=== PATIENT | female | born 1955 | race Caucasian/White ===

== ENCOUNTER 2017-04-15 13:33 | Emergency (ER) | payer SELFPAY ==
[~2017-04-15] VITALS: Ht 167.6 cm; Wt 45.5 kg
[~2017-04-15 13:33] MED LIST: ASPI325T; Z.0.NO CURRENT MEDS
[2017-04-15 13:35] VITALS: BP 124/64; PULSE 118; RESP 16; TEMP 99; O2SAT 98
--- NOTE | 2017-04-15 13:43 | PD ---
Physical Exam Date Seen by Provider: Apr 15, 2017 Time Seen by Provider: 13:42 Narrative 62 yo female here for evaluation of ear pain and urinary symptoms. Going on for about 8 days. Feeling congestion. Weak. Not seen anybody for this. Feels "not right". Thinks there might be yeast. Urinating a lot. Dysuria. Pain with ROM of the head on the right ear. Vitals stable at triage. Awaiting bed placement. Data Data Last Documented VS Vital Signs Date Time Temp Pulse Resp B/P (MAP) Pulse Ox O2 Delivery O2 Flow Rate FiO2 04/15/17 13:35 99.0 118 16 124/64 (84) 98 MDM Medical Record Reviewed: Yes Supervised Visit with REAL: No Yanick Bhatia Apr 15, 2017 13:43
== END 2017-04-15 15:19 | disposition left against medical advice (07) ==
LOC: NED 13:33
DX: H92.09 Otalgia, unspecified ear (principal); Z53.21 Procedure and treatment not carried out due to patient leaving prior to being seen by health care provider
CPT/HCPCS: 99281